=== PATIENT | female | born 1940 | race Caucasian/White ===

== ENCOUNTER 2020-09-27 14:28 | Outpatient (CLI) | payer MEDICARE, SELFPAY ==
[2020-09-27 14:46] LABS: Basophils Percent Auto 0.4 % (0.2-1.2); Eosinophils Absolute Auto 0.2 K/mm3 (0-0.3); Eosinophils Percent Auto 2.9 % (0-4.4); Hematocrit 39.3 % (37.0-47.0); Hemoglobin 12.3 g/dL (12.0-15.0); Immature Granulocyte Absolute 0.02 K/mm3 (0.00-0.031); Immature Granulocyte Percent A 0.3 % (0-0.5); Lymphocytes Absolute Auto 0.91 K/mm3 (0.9-3.2); Lymphocytes Percent Auto 12.8 % (18.3-44.2); Mean Corpuscular HGB Conc 31.3 g/dl (32-36); Mean Corpuscular Hemoglobin 25.2 pg (26-34); Mean Corpuscular Volume 80.5 fl (80-100); Mean Platelet Volume 10.2 fl (7.4-10.4); Monocytes Absolute Auto 0.6 K/mm3 (0.1-0.6); Monocytes Percent Auto 8.3 % (2.6-8.5); Neutrophils Absolute Auto 5.4 K/mm3 (1.3-6.7); Neutrophils Percent Auto 75.3 % (45.5-73.1); Platelet Count Result 274 k/mm3 (150-375); Red Blood Count 4.88 M/mm3 (4.2-5.4); Red Cell Distribution Width 15.8 % (11.5-14.5); White Blood Count 7.1 K/mm3 (4.5-10.0)
[2020-09-27 16:27] LABS: Iron 41 ug/dL (37-170)
[2020-09-27 16:36] LABS: Percent Iron Saturation 13 % (20-50)
[2020-09-27 18:03] LABS: Alanine Aminotransferase 22 U/L (4-35); Albumin Level 4.1 g/dL (3.5-5.1); Alkaline Phosphatase 84 U/L (38-126); Anion Gap 4 mmol/L (8-16); Aspartate Amino Transferase 23 U/L (14-36); Bilirubin,Total 0.2 mg/dL (0.2-1.3); Blood Urea Nitrogen 18 mg/dL (7-17); Calcium 9.7 mg/dL (8.4-10.2); Carbon Dioxide 32 mmol/L (22-30); Chloride 104 mmol/L (98-107); Estimated Glomerular Filt Rate > 60; Glucose 102 mg/dL (65-105); Potassium 4.2 mmol/L (3.4-5.0); Sodium 140 mmol/L (137-145)
[2020-09-27 18:40] LABS: Thyroid Stimulating Hormone 0.253 uIU/mL (0.465-4.680)
[2020-09-27 19:15] LABS: Folic Acid 9.1 ng/mL (2.76->20)
== END 2020-09-27 14:29 | disposition home or self-care (01) ==
LOC: ANHLAB 14:30
PROVIDERS: PCP Physician Assistant; Visit Provider Internal Medicine Hematology & Oncology
DX: D64.9 Anemia, unspecified (principal)
CPT/HCPCS: 36415; 80053; 82607; 82728; 82746; 83540; 83550; 84443; 85025

== ENCOUNTER 2020-10-25 08:17 | Outpatient (CLI) | payer MEDICARE, SELFPAY ==
--- NOTE | ~2020-10-25 | CT_ITS ---
EXAMINATION: CT diagnostic chest w con EXAM DATE: 10/25/2020 08:56 INDICATION: Right lung cancer. TECHNIQUE: Spiral CT of the chest following intravenous injection of 75 mL Omnipaque 350. Axial, cor onal and sagittal images of the chest were reviewed. Coronal maximum intensity pixel images of chest reviewed. The dose-length product (DLP) for this examination was 154.56 mGy-cm. The exposure was t ailored according to patient size (auto mA exposure control), and iterative reconstruction (ASIR) was used as additional dose reduction technique. There is no prior study for comparison. FINDINGS: There is a left-sided portacatheter. Spiculated but predominantly linear right upper lobe opacity with pleural-based component and then linear extension toward the hilum, probably patient's t reated lung cancer. Difficult to measure this given shape. There is moderate emphysema. Trace perica rdial effusion. No pleural effusions. Tracheobronchial tree is patent. There is no mediastinal, hi lar or axillary lymphadenopathy. There is no pneumothorax. Heart normal in size. There is mild coronary arterial calcification, arterial sclerosis. There is fluid density right liver lobe lesion measuring 2.0 cm, probably a cyst. There is a 1.1 cm right adrenal lesion, more likely an adenoma sugar n metastatic disease, but not meeting density requirement on this postcontrast CT. No central pulmona ry emboli. There is thoracic spondylosis without osteoblastic or osteolytic lesions identified. IMPRESSION: 1. Right upper lobe pleural-based spiculated opacity probably treated lung cancer. 2. Moderate emphysema. 3. Liver lesion likely cyst. 4. Right adrenal lesion nonspecific but more likely adenoma than metastatic lesion adenoma. Reviewed, dictated and finalized at location B. IMPRESSION: 1. Right upper lobe pleural-based spiculated opacity probably treated lung can cer. 2. Moderate emphysema. 3. Liver lesion likely cyst. 4. Right adrenal lesion nonspecific but more likely adenoma than metastatic le jennifer adenoma.
[2020-10-25 13:00] VITALS: PULSE 105; O2SAT 95
[2020-10-25 13:02] VITALS: PULSE 105; O2SAT 96
[2020-10-25 13:03] VITALS: PULSE 115; O2SAT 95
[2020-10-25 13:04] VITALS: PULSE 113; O2SAT 96
[2020-10-25 13:24] VITALS: PULSE 118; O2SAT 95
--- NOTE | 2020-10-25 13:24 | HOMEO2EVAL ---
Evaluation was performed at [facility] Home Oxygen Evaluation RC: Home Oxygen (O2) Evaluation Start: 10/25/20 13:21 Freq: Status: Active Protocol: RPE Activity Type Activity Date Activity User E-Sign Co-Sign Detail Recorded Client Recorded Date Recorded By Document 10/25/20 13:00 KRM [email or web address] 10/25/20 13:24 KRM Document 10/25/20 13:02 KRM [email or web address] 10/25/20 13:24 KRM Document 10/25/20 13:03 KRM [email or web address] 10/25/20 13:24 KRM Document 10/25/20 13:04 KRM [email or web address] 10/25/20 13:24 KRM Document 10/25/20 13:24 KRM [email or web address] 10/25/20 13:24 KRM 10/25/20 10/25/20 10/25/20 13:00 13:02 13:03 Home O2 Evaluation Test Phase Resting Exercise Exercise Oxygen Delivery Room Air Room Air Room Air Pulse Oximetry (90-100 %) 95 96 95 Pulse Rate (60-100 beats/min) 105 H 105 H 115 H Activity Tolerance Fair Fair Ambulation Distance (feet) Treatment Charges O2 Evaluation - Outpatient 10/25/20 10/25/20 13:04 13:24 Home O2 Evaluation Test Phase Exercise Exercise Oxygen Delivery Room Air Room Air Pulse Oximetry (90-100 %) 96 95 Pulse Rate (60-100 beats/min) 113 H 118 H Activity Tolerance Fair Fair Ambulation Distance (feet) 250 Treatment Charges
== END 2020-10-25 08:18 | disposition home or self-care (01) ==
PROVIDERS: PCP Physician Assistant; Referring Provider Internal Medicine Pulmonary Disease; Visit Provider Internal Medicine Hematology & Oncology
DX: C34.91 Malignant neoplasm of unspecified part of right bronchus or lung (principal); J43.9 Emphysema, unspecified; D35.01 Benign neoplasm of right adrenal gland; K76.89 Other specified diseases of liver
CPT/HCPCS: 71260; 94618; Q9967

== ENCOUNTER 2021-01-26 10:56 | Outpatient (CLI) | payer MEDICARE, SELFPAY ==
--- NOTE | ~2021-01-26 | XR_ITS ---
EXAMINATION: XR fl port a cath w contrast INDICATION: Malignant neoplasm of the right lung, unable to draw from the port. TECHNIQUE: Fluoroscopy was performed while contrast was injected by the vascular access nurse. Total fluoroscopic time was 0.6 minutes. 133 total images are obtained. COMPARISON: None available FINDINGS: A left internal jugular Port-A-Cath ends with its tip in the midsuperior vena cava. There i s subtle pooling of contrast near the tip of the catheter. IMPRESSION: 1. Findings consistent with fibrin sheath at the tip of the Port-A-Cath. Reviewed, dictated and finalized at location A.
== END 2021-01-26 10:57 | disposition home or self-care (01) ==
PROVIDERS: PCP Physician Assistant; Visit Provider Internal Medicine Hematology & Oncology
DX: C34.91 Malignant neoplasm of unspecified part of right bronchus or lung (principal)
CPT/HCPCS: 36598; Q9966

== ENCOUNTER 2021-05-05 11:31 | Outpatient (CLI) | payer MEDICARE, SELFPAY ==
[2021-05-09 18:34] LABS: Free T4 Free Thyroxine 1.26 ng/mL (0.78-2.19)
== END 2021-05-05 11:32 | disposition home or self-care (01) ==
LOC: ANHLAB 11:33
PROVIDERS: PCP Physician Assistant; Visit Provider Physician Assistant
DX: E03.9 Hypothyroidism, unspecified (principal)
CPT/HCPCS: 36415; 84439; 84443

== ENCOUNTER 2021-05-23 13:09 | Outpatient (CLI) | payer MEDICARE, SELFPAY ==
--- NOTE | ~2021-05-23 | CT_ITS ---
EXAMINATION:CT diagnostic chest w con DATE: 05/23/2021 14:16 INDICATION: Malignant neoplasm of right lung. TECHNIQUE: Computed tomography (CT) of the chest was performed with 75 mL Omnipaque 350 intravenous c ontrast. Automated exposure control and iterative reconstruction technique were employed. The dose-le ngth product (DLP) was 279.46 mGy-cm. COMPARISON: Chest CT 10/25/2020 FINDINGS: There is moderate emphysema. There is mild scarring at the lung apices. There are airspace opacities with volume loss in apical segment right upper lobe. Again seen is a 7 mm groundglass opaci ty in right upper lobe. There is mild atelectasis in lingula. Again seen are two 3 mm nodules in left upper lobe. No pleural effusion. There is a left internal jugular port with tip in superior vena cav a. The heart size is normal. No pericardial effusion. There are coronary artery calcifications. There is a 2.2 cm cyst in the liver. There is a 10 mm mass in right adrenal gland measuring low-attenuatio n without change, likely an adenoma. There is severe thoracic spondylosis. IMPRESSION: 1. 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 2. Moderate emphysema. Reviewed, dictated and finalized at location A. NING SPECIALIST IMPRESSION: 1. Stable airspace opacities with volume loss in apical segment right upper lob e, consistent with primary bronchogenic carcinoma and radiation fibrosis. 2. Moderate emphysema.
[2021-05-23 14:07] LABS: Estimated Glomerular Filt Rate 54
== END 2021-05-23 13:10 | disposition home or self-care (01) ==
LOC: ANHIMG 13:10
PROVIDERS: PCP Physician Assistant; Visit Provider Internal Medicine Hematology & Oncology
DX: C34.91 Malignant neoplasm of unspecified part of right bronchus or lung (principal); R91.8 Other nonspecific abnormal finding of lung field; J43.9 Emphysema, unspecified
CPT/HCPCS: 71260; 96372; J3420; Q9967

== ENCOUNTER 2021-06-21 11:48 | Outpatient (CLI) | payer MEDICARE, SELFPAY ==
[2021-06-21 13:07] LABS: Free T4 Free Thyroxine 1.99 ng/mL (0.78-2.19)
[2021-06-21 13:21] LABS: Thyroid Stimulating Hormone 0.673 uIU/mL (0.465-4.680)
== END 2021-06-21 11:49 | disposition home or self-care (01) ==
LOC: ANHLAB 11:51
PROVIDERS: PCP Physician Assistant; Visit Provider Physician Assistant
DX: E03.9 Hypothyroidism, unspecified (principal)
CPT/HCPCS: 36415; 84439; 84443

== ENCOUNTER → 2021-08-23 08:21 | Outpatient (CLI) | payer MEDICARE, SELFPAY ==
[2021-08-23 11:47] LABS: SARS-CoV-2 RNA PCR Negative
== END ==
PROVIDERS: PCP Physician Assistant; Visit Provider Physician Assistant
DX: R68.89 Other general symptoms and signs (principal); Z20.822 Contact with and (suspected) exposure to COVID-19
CPT/HCPCS: C9803; U0003; U0005

== ENCOUNTER 2021-09-16 09:11 | Emergency (ER) | payer MEDICARE, SELFPAY ==
[2021-09-16] VITALS (8 sets, daily range): BP systolic 113–146; BP diastolic 65–110; PULSE 102–108; RESP 24–28; TEMP 36.6; O2SAT 94–100
--- NOTE | ~2021-09-16 | XR_ITS ---
EXAMINATION: XR chest 1V portable INDICATION: Shortness of breath TECHNIQUE: Portable AP chest at 0948 hours COMPARISON: Chest CTs dated 05/23/2021 and 10/25/2020 FINDINGS: A left internal jugular Port-A-Cath ends with its tip in the midsuperior vena cava. There i s right upper lobe scarring, consistent with treated malignancy. No acute airspace opacities are iden tified. There is no pleural effusion or pneumothorax. The heart size is normal. IMPRESSION: 1. No acute cardiopulmonary abnormality. Reviewed, dictated and finalized at location B.
--- NOTE | 2021-09-16 09:34 | ECG_ITS ---
Measurements Intervals [place] Rate: 102 P: 69 GA: 156 QRS: 51 QRSD: 91 T: 50 QT: 337 QTc: 440 Interpretive Statements SINUS TACHYCARDIA OTHERWISE NORMAL ECG NO PREVIOUS ECG AVAILABLE FOR COMPARISON Electronically Signed On 09-16-2021 16:25:01 CDT by Osman Mota M.D.
[2021-09-16] MEDS: IPRATROPIUM BR 0.02% INH SOLN 0.5 MG/2.5 ML VIAL 1.5 MG INHALATION (09:46)
[2021-09-16] MEDS: ALBUTEROL SULFATE NEB 2.5 MG/0.5 ML INH 15 MG INHALATION (09:46)
[2021-09-16 10:21] LABS: Basophils Percent Auto 0.5 % (0.2-1.2); Eosinophils Absolute Auto 0.4 K/mm3 (0-0.3); Eosinophils Percent Auto 5.9 % (0-4.4); Hematocrit 43.1 % (37.0-47.0); Hemoglobin 13.1 g/dL (12.0-15.0); Immature Granulocyte Absolute 0.03 K/mm3 (0.00-0.031); Immature Granulocyte Percent A 0.5 % (0-0.5); Lymphocytes Absolute Auto 0.88 K/mm3 (0.9-3.2); Lymphocytes Percent Auto 14.4 % (18.3-44.2); Mean Corpuscular HGB Conc 30.4 g/dl (32-36); Mean Corpuscular Hemoglobin 26.2 pg (26-34); Mean Corpuscular Volume 86.2 fl (80-100); Mean Platelet Volume 10.7 fl (7.4-10.4); Monocytes Absolute Auto 0.5 K/mm3 (0.1-0.6); Monocytes Percent Auto 8.5 % (2.6-8.5); Neutrophils Absolute Auto 4.3 K/mm3 (1.3-6.7); Neutrophils Percent Auto 70.2 % (45.5-73.1); Platelet Count Result 195 k/mm3 (150-375); Red Cell Distribution Width 14.7 % (11.5-14.5); White Blood Count 6.1 K/mm3 (4.5-10.0)
[2021-09-16 10:33] LABS: Alanine Aminotransferase 30 U/L (4-35); Albumin Level 4.2 g/dL (3.5-5.1); Alkaline Phosphatase 96 U/L (38-126); Anion Gap 3 mmol/L (8-16); Aspartate Amino Transferase 29 U/L (14-36); Bilirubin,Total 0.4 mg/dL (0.2-1.3); Blood Urea Nitrogen 24 mg/dL (7-17); Calcium 9.1 mg/dL (8.4-10.2); Carbon Dioxide 35 mmol/L (22-30); Chloride 101 mmol/L (98-107); Estimated CRCL calculation 45 ml/min; Estimated Glomerular Filt Rate > 60; Glucose 125 mg/dL (65-110); Potassium 4.1 mmol/L (3.4-5.0); Sodium 139 mmol/L (137-145)
[2021-09-16 10:44] LABS: NT Pro B Type Natriuretic Pept 104 pg/mL (5-100)
--- NOTE | 2021-09-16 11:10 | ED.SOB ---
HPI - SOB/Dyspnea General Chief Complaint: Shortness of Breath/Dyspnea Stated Complaint: dyspnea Time Seen by Provider: 09/16/21 09:16 History of Present Illness HPI Narrative: Patient is a 81-year-old female who presents ER with shortness of breath. Intermittent over the last 2 months. She has been on steroids last finishing on 2 weeks ago. Shortness of breath worsened today. She has been wheezing has been using her nebulizer treatment without improvement. No fevers or chills or sweats. She does endorse cough. She wears 5 L at baseline. Related Data Home Medications Medication Instructions Recorded Confirmed montelukast 10 mg tablet 10 mg PO DAILY 08/17/20 09/01/21 fexofenadine 180 mg tablet 180 mg PO DAILY 09/20/20 09/01/21 magnesium oxide 400 mg (241.3 mg 400 mg PO DAILY 09/20/20 09/01/21 magnesium) tablet oaozdonsuvfv-Yt-qsrp-minerals 1 tablet PO DAILY 09/22/20 09/01/21 Allergies Allergy/AdvReac Type Severity Reaction Status Date / Time meperidine Allergy Mild Unknown Verified 09/16/21 09:30 Review of Systems Review of Systems: All systems reviewed & are unremarkable except as noted in HPI and below Constitutional: Constitutional: Denies chills, Denies fever(s) and Denies weakness ENT: Denies nasal congestion and Denies sore throat Cardiovascular: Cardiovascular: Denies chest pain, Denies rapid heart rate and Denies radiating jaw, neck or arm pain Respiratory: Respiratory: Reports cough, Reports dyspnea and Reports wheezing Gastrointestinal: Gastrointestinal: Denies abdominal pain, Denies diarrhea, Denies nausea and Denies vomiting [facility] Past Medical History Medical History Arthritis Cancer COPD (chronic obstructive pulmonary disease) History of tobacco abuse Lung disease MICHELLE (obstructive sleep apnea) Sleep disorder SOB (shortness of breath) Family History Family History Father Heart disease Black lung Alcohol abuse Mother Diabetes mellitus Heart disease Lung disease Sibling Asthma Heart disease Pancreas cancer Social History Social History Smoking packs per day: 1 Smoking cigarettes per day: 20.0 Years smoked: 50 Smoking pack-years: 50.00 Smoking status: Current every day smoker Tobacco type: cigarettes Alcohol intake: never Substance use: never Exam Narrative: GENERAL: Uncomfortable-appearing, well-nourished, and in mild distress. HEAD: Normocephalic, atraumatic. ENT: Mucous membranes moist. CHEST: Mild to moderate respiratory distress with historian expiratory rhonchi/wheezing bilaterally. HEART: Tachycardic regular. Normal peripheral pulses. ABDOMEN: Soft, nontender, nondistended. EXTREMITIES: Normal range of motion. No edema. SKIN: Warm, dry, no rash. NEURO: Alert and oriented x3. PSYCH: Normal mood and affect. Course Course Emergency Course: Patient informed of results. She is on her home O2. She has been able to ambulate without hypoxia. Patient did have some mild anxiety that was treated with Xanax and she feels much better. Vital Signs Vital signs: Vital Signs Temperature 97.8 F 09/16/21 09:09 Pulse Rate 108 H 09/16/21 09:09 Respiratory Rate 28 H 09/16/21 09:09 Blood Pressure 146/69 H 09/16/21 09:09 Pulse Oximetry 100 09/16/21 09:09 Temperature 97.8 F 09/16/21 09:09 Pulse Rate 102 H 09/16/21 10:28 Respiratory Rate 28 H 09/16/21 09:09 Blood Pressure 146/69 H 09/16/21 09:09 Pulse Oximetry 94 09/16/21 14:18 MDM - SOB/Dyspnea Lab Data Result diagrams: 09/16/21 10:11 09/16/21 10:10 Labs: Lab Results 09/16/21 09/16/21 09/16/21 Range/Units 10:10 10:10 10:11 WBC 6.1 (4.5-10.0) K/mm3 RBC 5.00 (4.2-5.4) M/mm3 Hgb 13.1 (12.0-15.0) g/dL Hct 43.1 (37.0-47.0) % MCV 86.2 (80-100) fl
--- NOTE | 2021-09-16 13:00 | PC.NURSE ---
1215-PATIENT REQUESTING BATHROOM. DUE TO SOB, PATIENT ASSISTED ONTO BEDSIDE COMMODE. REMAINS ON NASAL O2 @ 6L. PATIENT PLACED IN CLEAN DEPENDS PER HER REQUEST. JULIA CARE PROVIDED PER HER REQUEST. PATIENT ASSISTED X 2 BACK ONTO STRETCHER.
[2021-09-16] MEDS: methylPREDNISolone SOD SUCC 125 MG VIAL IV PUSH (13:03)
[2021-09-16] MEDS: ALPRAZolam (*CRX) 0.5 MG TABLET PO (13:03)
== END 2021-09-16 15:30 | disposition home or self-care (01) ==
PROVIDERS: Emergency Provider Emergency Medicine; PCP Physician Assistant
DX: J44.1 Chronic obstructive pulmonary disease with (acute) exacerbation (principal); G47.33 Obstructive sleep apnea (adult) (pediatric); M19.90 Unspecified osteoarthritis, unspecified site; F17.210 Nicotine dependence, cigarettes, uncomplicated; R00.0 Tachycardia, unspecified
CPT/HCPCS: 36415; 71045; 80053; 83880; 85025; 93005; 96374; 99284; A9270; J2930

== ENCOUNTER 2021-10-03 10:41 | Outpatient (CLI) | payer MEDICARE, SELFPAY ==
--- NOTE | ~2021-10-03 | CT_ITS ---
EXAMINATION: CT diagnostic chest w con DATE: 10/03/2021 11:25 INDICATION: Malignant neoplasm of the right lung TECHNIQUE: Transaxial computed tomographic images of the chest were obtained after the administration of 75 cc of Omnipaque 350 intravenous contrast. The dose-length product (DLP) was 241.60 mGy-cm. Ite rative reconstruction was used. COMPARISON: 05/23/2021 FINDINGS: There is moderate emphysema. Again noted are stable airspace opacities with volume loss in the right lung apex. There is a stable 6 mm groundglass nodule in the right upper lobe on image 44. T here is a stable 6 mm groundglass nodule in the left upper lobe on image 32. No new nodules are ident ified. There is no pleural effusion or pneumothorax. No pathologically enlarged thoracic lymph nodes are identified. The heart size is normal. A left internal jugular Port-A-Cath ends with its tip in th e distal superior vena cava. There is a 2.1 cm cyst of the right hepatic lobe. A stable adenoma is no new in the right adrenal gland. There is severe thoracic spondylosis. IMPRESSION: 1. Stable airspace opacities of the right lung apex, consistent with treated malignancy and radiation fibrosis. Reviewed, dictated and finalized at location A. IMPRESSION: 1. Stable airspace opacities of the right lung apex, consistent with treated ma lignancy and radiation fibrosis.
== END 2021-10-03 10:42 | disposition home or self-care (01) ==
LOC: ANHIMG 10:42
PROVIDERS: PCP Physician Assistant; Visit Provider Internal Medicine Hematology & Oncology
DX: C34.91 Malignant neoplasm of unspecified part of right bronchus or lung (principal)
CPT/HCPCS: 71260; Q9967

== ENCOUNTER 2022-03-27 12:54 | Outpatient (CLI) | payer MEDICARE, SELFPAY ==
--- NOTE | ~2022-03-27 | CT_ITS ---
EXAMINATION: CT diagnostic chest w con DATE: 03/27/2022 13:16 INDICATION: Malignant neoplasm of the right lung. TECHNIQUE: Computed tomography (CT) of the chest was performed with 75 cc Omnipaque 350 intravenous c ontrast. The dose-length product was 226.44 mGy-cm. COMPARISON: Comparison to multiple prior studies sequentially, with oldest reviewed study dated 08/2020. FINDINGS: No mediastinal, hilar or axillary lymphadenopathy. There is a port catheter, tip in the SVC . Heart size normal. No significant pleural or pericardial effusion. There is a liver cyst measuring 1.9 cm, right hepatic lobe. Adrenal glands are unremarkable. No endobronchial lesions. No significant change to opacities in the right upper lobe extending to the pleural surface with volume loss. Stabl e scarring at the lung apices. There is moderate-severe emphysema. No endobronchial lesions. There is a stable groundglass nodule in the right upper lobe, image 31, measuring 6 mm. There is a stable 3 m m groundglass nodule in the left upper lobe, image 23. There is a calcified granuloma in the left upp er lobe. No peripheral consolidation. No new pulmonary nodules/masses. No pneumothorax. There is mode rate thoracic spondylosis. No focal lytic or blastic lesions. IMPRESSION: 1. Stable right upper lobe opacities with associated volume loss, consistent with known history of br onchogenic carcinoma with radiation fibrosis. Stable bilateral groundglass nodules, likely benign. Reviewed, dictated and finalized at location A. IMPRESSION: 1. Stable right upper lobe opacities with associated volume loss, consistent wi th known history of bronchogenic carcinoma with radiation fibrosis. Stable bila teral groundglass nodules, likely benign.
[2022-03-27 13:13] LABS: Estimated Glomerular Filt Rate 53
== END 2022-03-27 12:55 | disposition home or self-care (01) ==
PROVIDERS: PCP Physician Assistant; Visit Provider Internal Medicine Hematology & Oncology
DX: C34.91 Malignant neoplasm of unspecified part of right bronchus or lung (principal)
CPT/HCPCS: 71260; Q9967

== ENCOUNTER 2022-11-30 14:48 | Outpatient (CLI) | payer MEDICARE, SELFPAY ==
--- NOTE | ~2022-11-30 | CT_ITS ---
EXAMINATION: CT diagnostic chest w con DATE: 11/30/2022 15:27 INDICATION: Lung cancer TECHNIQUE: Transaxial computed tomographic images of the chest were obtained after the administration of 75 cc of Omnipaque 350 intravenous contrast. The dose-length product (DLP) was 278.64 mGy-cm. Ite rative reconstruction was used. COMPARISON: 03/27/2022, 10/03/2021 FINDINGS: There is moderate emphysema. There are stable airspace opacities with volume loss in the ri ght lung apex. A stable 6 mm groundglass nodule is present in the right upper lobe on image 37. There is a stable 6 mm groundglass nodule of the left upper lobe on image 32. No pleural effusion or pneum othorax. There is mild atelectasis of the lingula and right lower lobe. No pathologically enlarged th oracic lymph nodes are identified. The heart size is normal. A left internal jugular Port-A-Cath ends with its tip in the distal superior vena cava. There is calcified coronary artery atherosclerosis. A 2.1 cm cyst is noted in the right hepatic lobe. Stones are present in the nondistended gallbladder. There is severe thoracic spondylosis. IMPRESSION: 1. Findings consistent with treated malignancy and radiation fibrosis in the right upper lobe. Reviewed, dictated and finalized at location F. IMPRESSION: 1. Findings consistent with treated malignancy and radiation fibrosis in the ri t upper lobe.
== END 2022-11-30 14:49 | disposition home or self-care (01) ==
PROVIDERS: PCP Physician Assistant; Visit Provider Internal Medicine Hematology & Oncology
DX: C34.91 Malignant neoplasm of unspecified part of right bronchus or lung (principal)
CPT/HCPCS: 71260; Q9967

== ENCOUNTER 2023-07-31 08:55 | Outpatient (CLI) | payer MEDICARE, SELFPAY ==
--- NOTE | ~2023-07-31 | CT_ITS ---
EXAMINATION: CT diagnostic chest w con DATE: 07/31/2023 09:25 INDICATION: Malignant neoplasm of the right lung TECHNIQUE: Transaxial computed tomographic images of the chest were obtained after the administration of 75 cc of Omnipaque 350 intravenous contrast. The dose-length product (DLP) was 252.42 mGy-cm. Ite rative reconstruction was used. COMPARISON: 11/30/2022 FINDINGS: Airspace opacities and volume loss persists in the right lung apex without significant alvarez ge. There is moderate emphysema. There is a stable 6 mm groundglass nodule in the right upper lobe on image 32. There is a stable groundglass nodule of the left upper lobe on image 27. The lungs are terell e of acute opacities. No pleural effusion or pneumothorax. A left internal jugular Port-A-Cath ends w ith its tip in the superior vena cava. No pathologically enlarged thoracic lymph nodes are identified . The heart size is normal. Calcified coronary artery atherosclerosis is noted. There is a 2.2 cm cys t of the right hepatic lobe. Cholelithiasis is noted. There is severe thoracic spondylosis. IMPRESSION: 1. Stable findings consistent with treated malignancy and radiation fibrosis of the right upper lobe. Reviewed, dictated and finalized at location L. SORTER OPERATOR
== END 2023-07-31 08:56 | disposition home or self-care (01) ==
PROVIDERS: PCP Physician Assistant; Visit Provider Internal Medicine Hematology & Oncology
DX: C34.91 Malignant neoplasm of unspecified part of right bronchus or lung (principal)
CPT/HCPCS: 71260; Q9967

== ENCOUNTER 2024-01-22 10:58 | Outpatient (CLI) | payer MEDICARE, SELFPAY ==
[2024-01-22 11:22] LABS: Basophils Percent Auto 0.7 % (0.2-1.2); Eosinophils Absolute Auto 0.2 K/mm3 (0-0.3); Eosinophils Percent Auto 3.7 % (0-4.4); Hematocrit 39.6 % (37.0-47.0); Hemoglobin 11.9 g/dL (12.0-15.0); Immature Granulocyte Absolute 0.01 K/mm3 (0.00-0.031); Immature Granulocyte Percent A 0.2 % (0-0.5); Lymphocytes Absolute Auto 1.35 K/mm3 (0.9-3.2); Lymphocytes Percent Auto 23.6 % (18.3-44.2); Mean Corpuscular HGB Conc 30.1 g/dl (32-36); Mean Corpuscular Volume 86.5 fl (80-100); Mean Platelet Volume 9.9 fl (7.4-10.4); Monocytes Absolute Auto 0.5 K/mm3 (0.1-0.6); Monocytes Percent Auto 8.6 % (2.6-8.5); Neutrophils Absolute Auto 3.6 K/mm3 (1.3-6.7); Neutrophils Percent Auto 63.2 % (45.5-73.1); Platelet Count Result 222 k/mm3 (150-375); Red Blood Count 4.58 M/mm3 (4.2-5.4); Red Cell Distribution Width 14.2 % (11.5-14.5); White Blood Count 5.7 K/mm3 (4.5-10.0)
[2024-01-22 12:15] LABS: Alanine Aminotransferase 21 U/L (6-35); Albumin Level 4.2 g/dL (3.5-5.1); Alkaline Phosphatase 93 U/L (38-126); Anion Gap 7 mmol/L (4-12); Aspartate Amino Transferase 22 U/L (14-36); Bilirubin,Total 0.4 mg/dL (0.2-1.3); Blood Urea Nitrogen 18 mg/dL (7-17); Carbon Dioxide 33 mmol/L (22-30); Chloride 99 mmol/L (98-107); Estimated Glomerular Filt Rate 60; Glucose 92 mg/dL (65-110); Potassium 4.3 mmol/L (3.4-5.0); Sodium 139 mmol/L (137-145)
[2024-01-22 13:22] LABS: Folic Acid 8.5 ng/mL (2.76->20)
== END 2024-01-22 10:59 | disposition home or self-care (01) ==
LOC: ANHLAB 11:00
PROVIDERS: PCP Physician Assistant; Visit Provider Internal Medicine Hematology & Oncology
DX: D64.9 Anemia, unspecified (principal)
CPT/HCPCS: 36415; 80053; 82607; 82746; 85025

== ENCOUNTER 2024-01-28 09:35 | Outpatient (CLI) | payer MEDICARE, SELFPAY ==
--- NOTE | ~2024-01-28 | CT_ITS ---
Clinical Indication: Lung cancer CT Scan of the Chest with Contrast: Technique: Contiguous sections were acquired throughout the chest after intravenous administration of 75 cc of Omnipaque 350. Dose reduction technique was used on this scan by utilizing automated exposu re control and iterative reconstruction technique. The dose-length product (DLP) was 222.01 mGy-cm. COMPARISON: 07/31/2023 Findings: There is no evidence of any significant mediastinal, hilar or axillary lymphadenopathy. There is no f illing defect in the pulmonary arterial tree to suggest pulmonary embolus. There is no evidence of ao rtic dissection or aneurysm. There is no evidence of pleural or pericardial effusion. Stable irregular right apical nodular opacity osseous of treated disease, with possible scarring exte nding towards the right hilum. These findings are stable from prior exam. Moderate upper lobe emphyse ma present. Images through the upper abdomen reveal stable right adrenal nodule and stable right hepatic lobe cys t. Impression: Stable probable posttreatment changes/treated disease in the right upper lobe. Moderate bilateral upper lobe emphysema. Reviewed, dictated and finalized at location M. Impression: Stable probable posttreatment changes/treated disease in the right upper lobe. Moderate bilateral upper lobe emphysema.
== END 2024-01-28 09:36 | disposition home or self-care (01) ==
PROVIDERS: PCP Internal Medicine; Visit Provider Internal Medicine Hematology & Oncology
DX: C34.91 Malignant neoplasm of unspecified part of right bronchus or lung (principal); J43.9 Emphysema, unspecified
CPT/HCPCS: 71260; Q9967

== ENCOUNTER 2024-02-20 09:41 | Outpatient (CLI) | payer MEDICARE, SELFPAY ==
[2024-02-20 10:01] LABS: Basophils Absolute Auto 0.1 K/mm3 (0.0-0.1); Basophils Percent Auto 0.8 % (0.2-1.2); Eosinophils Absolute Auto 0.3 K/mm3 (0-0.3); Eosinophils Percent Auto 4.3 % (0-4.4); Hematocrit 42.6 % (37.0-47.0); Hemoglobin 13.1 g/dL (12.0-15.0); Immature Granulocyte Absolute 0.01 K/mm3 (0.00-0.031); Immature Granulocyte Percent A 0.2 % (0-0.5); Lymphocytes Absolute Auto 1.25 K/mm3 (0.9-3.2); Lymphocytes Percent Auto 19.3 % (18.3-44.2); Mean Corpuscular HGB Conc 30.8 g/dl (32-36); Mean Corpuscular Hemoglobin 26.1 pg (26-34); Mean Platelet Volume 10.3 fl (7.4-10.4); Monocytes Absolute Auto 0.7 K/mm3 (0.1-0.6); Monocytes Percent Auto 10.3 % (2.6-8.5); Neutrophils Absolute Auto 4.2 K/mm3 (1.3-6.7); Neutrophils Percent Auto 65.1 % (45.5-73.1); Platelet Count Result 210 k/mm3 (150-375); Red Blood Count 5.01 M/mm3 (4.2-5.4); Red Cell Distribution Width 14.1 % (11.5-14.5); White Blood Count 6.5 K/mm3 (4.5-10.0)
[2024-02-20 11:06] LABS: Alanine Aminotransferase 23 U/L (6-35); Albumin Level 4.5 g/dL (3.5-5.1); Alkaline Phosphatase 105 U/L (38-126); Anion Gap 8 mmol/L (4-12); Aspartate Amino Transferase 26 U/L (14-36); Bilirubin,Total 0.5 mg/dL (0.2-1.3); Blood Urea Nitrogen 18 mg/dL (7-17); Calcium 9.3 mg/dL (8.4-10.2); Carbon Dioxide 34 mmol/L (22-30); Chloride 96 mmol/L (98-107); Estimated Glomerular Filt Rate 60; Glucose 80 mg/dL (65-110); Potassium 4.3 mmol/L (3.4-5.0); Sodium 138 mmol/L (137-145)
[2024-02-20 12:11] LABS: Folic Acid 8.8 ng/mL (2.76->20)
== END 2024-02-20 09:42 | disposition home or self-care (01) ==
LOC: ANHLAB 09:42
PROVIDERS: PCP Internal Medicine; Visit Provider Internal Medicine Hematology & Oncology
DX: D64.9 Anemia, unspecified (principal)
CPT/HCPCS: 36415; 80053; 82607; 82746; 85025

== ENCOUNTER 2024-05-13 11:54 | Outpatient (CLI) | payer MEDICARE, SELFPAY ==
[2024-05-13 12:43] LABS: Free T4 Free Thyroxine 1.62 ng/mL (0.78-2.19)
== END 2024-05-13 11:55 | disposition home or self-care (01) ==
LOC: ANHLAB 11:56
PROVIDERS: PCP Internal Medicine; Visit Provider Internal Medicine
DX: E03.9 Hypothyroidism, unspecified (principal)
CPT/HCPCS: 36415; 84439; 84443

== ENCOUNTER 2024-08-11 09:58 | Outpatient (CLI) | payer MEDICARE, SELFPAY ==
--- NOTE | ~2024-08-11 | CT_ITS ---
Clinical Indication: Lung cancer CT Scan of the Chest with Contrast: Technique: Contiguous sections were acquired throughout the chest after intravenous administration of 75 cc of Omnipaque 350. Dose reduction technique was used on this scan by utilizing automated exposu re control and iterative reconstruction technique. The dose-length product (DLP) was 225.07 mGy-cm. COMPARISON: 01/28/2024 Findings: There is no evidence of any significant mediastinal, hilar or axillary lymphadenopathy. There is no f illing defect in the pulmonary arterial tree to suggest pulmonary embolus. There is no evidence of ao rtic dissection or aneurysm. There is no evidence of pleural or pericardial effusion. Stable spiculated right upper lobe nodule, suggestive of treated disease. Moderate to advanced emphys jess and right pleural scarring unchanged. Images through the upper abdomen reveal no abnormalities. Impression: Stable spiculated right upper lobe nodule and scarring, suggestive of treated disease/post therapy ch sofia. Moderate to advanced emphysema. Reviewed, dictated and finalized at location . UTER PROGRAMMING PROFESSOR Impression: Stable spiculated right upper lobe nodule and scarring, suggestive of treated d isease/post therapy change. Moderate to advanced emphysema.
[2024-08-11 10:28] LABS: Estimated Glomerular Filt Rate 53
--- OUTSIDE RECORDS SUMMARY | 2024-08-11 12:48 | XMS_ITS | Continuity of Care Document ---
Author Organization [facility] Address [address] [place] [address] [place] [address] Phone Care Team Providers Care Manager Corporate Communications Name Role Phone Jd Rodarte Unavailable Unavailable Procedures Procedure Date Office/outpatient Visit, Est Office/outpatient Visit, New Advance Directives Directive Yes / No Effective Date File Name No Information Encounters Encounter Description Practice Location Reason(s) For Visit Diagnoses Date Provider Providers Copied on Encounter Office/outpat ient Visit, [facility], [address] [place] [address] [address], [place], [place], [id number], tel:[phone] SEC [facility] No Information [address] [facility] , [address], [place], [place], [facility], . tel:[phone] Office/outpat ient Visit, [facility], [address] [place] [address] [address], [place], [place], [id number], tel:[phone] [facility] [place] No Information [address]. [address] [facility] , [address], [place], [place], [facility], [place]. tel:[phone] Family History Family Member Type Diagnosis Age At Onset No Information Payers Payer name Insurance type Covered constitution party ID Authoriza tion(s) No Information Social History Type Description Quantity Date Captured Comments Sex Female Smoking Status No Information Chief Complaint And Reason For Visit No Information Reason For Referral Reason For Referral No Information History Of Present Illness Encounter Date Complaint History Of Prese nt Illness No Information Functional Status Date Functional Assessmen t No Information Instructions Date Instruction Additional Infor mation No Information Assessments Type Assessment Date No Information Patient Care Teams Name Effective Dates (start - stop) Status Members No Information
--- OUTSIDE RECORDS SUMMARY | 2024-08-11 12:48 | XMS_ITS | Clinical Summary ---
Author Organization [facility] Address [address] [place] [address] Care Team Providers Care Mineral Surveying Technician Name Role Phone Robb Bloom PA-C Primary Care Provide r Allergies Active Allergy Reactions Criticality Noted Date Comments Meperidine Nausea and Vomiting Low 08/10/2017 Medications furosemide (LASIX) 40 mg tablet Take 40 mg by mouth. Active gabapentin (NEURONTIN) 300 mg capsule Take 900 mg by mouth. Active fexofenadine (AZALEA) 180 mg tablet Take 180 mg by mouth. Active albuterol HFA 90 mcg inhaler Take 2 Puffs by inhalation every 6 hours as needed. Active oxygen home delivery Administer 2 L/min in each nostril. Active MAGNESIUM ORAL Take by mouth. Active Spiriva Respimat 2.5 mcg/actuation Mist INHALE 1 PUFF BY MOUTH TWICE DAILY 1 Active theophylline (THEOCHRON) 300 mg Extended Release 12 hour tablet Take 300 mg by mouth. Active pramipexole (MIRAPEX) 0.25 mg tablet Take 0.25 mg by mouth. 8 Active potassium chloride (KLOR-CON) 10 mEq Extended Release tablet Take 10 mEq by mouth. Active montelukast (SINGULAIR) 10 mg tablet Take 10 mg by mouth. Active spironolactone (ALDACTONE) 25 mg tablet Take 25 mg by mouth. Active arformoteroL (BROVANA) 15 mcg/2 mL Solution for Nebulization Take by inhalation. Active BUDESONIDE INHALATION Take by inhalation. Active umeclidinium (INCRUSE ELLIPTA) 62.5 mcg/actuation Disk with Device Take 1 Puff by inhalation daily. 1 Each 11 0 Active promethazine-dex tromethorphan (PHENERGAN-DM) 6.25-15 mg/5 mL syrupIndications :Medicine refill Take 5 mL by mouth every 4 hours as needed for Cough. May cause drowsinesss 120 mL 0 0 Active sertraline (ZOLOFT) 50 mg tablet Take 50 mg by mouth daily. 2 Active Daliresp 250 mcg Tablet TAKE 1 TABLET BY MOUTH DAILY FOR 4 WEEKS. START THIS PACK FIRST 2 Active Daliresp 500 mcg Tablet TAKE 1 TABLET BY MOUTH DAILY. START THIS AFTER FINISHING THE 250 MCG PACK 2 Active predniSONE (DELTASONE) 10 mg tablet 3 Active levothyroxine 100 mcg tablet TAKE 1 TABLET(100 MCG) BY MOUTH DAILY IN THE MORNING 90 Tablet 3 4 Active Active Problems Problem Noted Date Diagnosed Date Vitamin B12 deficiency (non anemic) 11/02/2020 Non-small cell cancer of right lung 09/27/2020 Other fatigue 09/27/2020 Chronic obstructive pulmonary disease 03/04/2019 Enlargement of lymph node 11/14/2018 Malignant neoplasm of upper lobe of right lung 0 07/31/2018 Cancer Staging:Clinical:Stage IA3(cT1c, cN0, cM0) - Unsigned Tobacco use Cigarette dependence Encounters Date Type Department Care Team Description 07/16/2024 External Device Data STL ABSTRACTION Provider, Abstract 07/16/2024 External Device Data STL ABSTRACTION Provider, Abstract from Last 3 Months Immunizations Immunization Administration Dates Next Due Influenza Vaccine High Dose 65+ Yrs IM 8 Family History Medical History Relation Name Comments Melanoma Daughter Heart Disease Father Diabetes Mother Heart Disease Mother Heart Disease Sister 1 Pancreatic Cancer Sister 1 Pancreatic Cancer Sister 2 Relation Name Status Comments Brother 1 Alive Brother 2 Daughter Alive Father Mother Sister 1 Sister 2 Alive Son 1 Alive Son 2 Social History Tobacco Use Types Packs/Day Years Used Date Smoking Tobacco: Every Day Cigarettes 2 58 Smokeless Tobacco: Never Tobacco Cessation:Ready to Q uit: Not Asked; Counseling Given: Not Answered Comments:smoked since 20 yrs Alcohol Use Standard Drinks/Week Comments No 0 (1 standard drink = 0.6 oz pur e alcohol) Feeling Safe Answer Date Recorded Within the last year, have y ou been afraid of your partner or ex-partner? No 01/30/2019 Within the last year, have y ou been humiliated or emotionally abused in other ways by your partner or ex-partner? No Within the last year, have y ou been kicked, hit, slapped, or otherwise physically hurt by your partner or ex-partner? No 01/30/2019 Within the last year, have y ou been raped or forced to have any kind of sexual activity by your partner or ex-partner? No 01/30/2019 Social Connections Answer Date Recorded In a typical week, how many times do you talk on the phone with family, friends, or neighbors? Three times a week 01/30/2019 How often do you get togethe r with friends or relatives? Never 01/30/2019 How often do you attend chur ch or church services? Never 01/30/2019 Do you belong to any clubs o r organizations such as rastafari groups, unions, fraternal or athletic groups, or school groups? No 01/30/2019 How often do you attend meet ings of the clubs or organizations you belong to? Never 01/30/2019 Are you , , di vorced, , never , or living with a partner? 01/30/2019 Financial Resource Strain Answer Date R ecorded How hard is it for you to pa y for the very basics like food, housing, medical care, and heating? Not hard at all 01/30/2019 Food Insecurity Answer Date Recorded Within the past 12 months, y ou worried that your food would run out before you got the money to buy more. Never true 01/31/20 19 Within the past 12 months, t he food you bought just didn't last and you didn't have money to get more. Never true 01/30/2019 Transportation Needs Answer Date Record ed In the past 12 months, has l ack of transportation kept you from medical appointments or from getting medications? No 01/2019 In the past 12 months, has l ack of transportation kept you from meetings, work, or from getting things needed for daily living? No 01/30/2019 Comments Unknown Sex and Gender Information Value Date Recorded Sex Assigned at Not on file Legal Sex Female 4:12 AM ORACLE DRM CONSULTANT Gender Identity Not on file Sexual Orientation Not on file Last Filed Vital Signs Vital Sign Reading Time Taken Comments Blood Pressure 99/62 02/21/2024 2:05 PM CDT Pulse 96 02/21/2024 2:05 PM CDT Temperature 36.3 C (97.3 F) 02/21/2024 2:05 PM CDT Respiratory Rate 18 02/21/2024 2:05 PM CDT Oxygen Saturation 92% 02/21/2024 2:05 PM CDT Inhaled Oxygen Concentration - - Weight 76.6 kg (168 lb 12.8 oz) 08/08/2023 1:00 PM ORACLE DRM CONSULTANT Height 154.9 cm (5' 1 ) 10/10/2021 11:2 6 AM CDT Body Mass Index 31.89 10/10/2021 11:26 AM CDT Plan of Treatment Upcoming Encounters Date Type Department Care Team (Late st Contact Info) Description 08/19/2024 1:00 PM ORACLE DRM CONSULTANT Office Visit [facility] Oncology and Hematology - [place] [address] [facility] [address] [address] [place] [address] [place] [address] [address] [place] [address] Health Maintenance Due Date Last Done Comments DTAP/TDAP/TD VACCINES (1 - Tdap) 1959 PNEUMOCOCCAL VACCINE 65+ YEARS (1 of 2 - PCV) 08/29/18 62 ZOSTER VACCINE (1 of 2) 1992 OSTEOPOROSIS SCREENING 08/30/2007 RSV VACCINE (60+ or ) (1 - 1-dose 75+ series) 2017 INFLUENZA VACCINE (#1) 2024 05/08/2018 Medicare [place] ([place]) Prev entative Visit/Annual Wellness Visit 06/25/2024 Medical Devices Implanted Type Area Lacquerer Device Identifier Shelf Expiration Date Model / Serial / Lot Port Pwrprt Clr Sofi 8fr Mri [id number] Implanted:Qty : 1 on 02/06/2019 by Pam Garcia MD Port Left: Chest CR [employer] [id number] 01/23/2020 [id number] / / [id number] Description:8fr Bard ClearVu e PowerPort Insurance Care Teams Mineral Surveying Technician Relationship Specialty Start Date End Date Robb Bloom PA-C PCP - General Physician Ordnance Mechanic 09/27/20
== END 2024-08-11 09:59 | disposition home or self-care (01) ==
PROVIDERS: PCP Internal Medicine; Visit Provider Internal Medicine Hematology & Oncology
DX: R91.1 Solitary pulmonary nodule (principal); J98.4 Other disorders of lung; J43.9 Emphysema, unspecified; C34.91 Malignant neoplasm of unspecified part of right bronchus or lung
CPT/HCPCS: 71260; Q9967

== ENCOUNTER 2024-08-11 10:59 | Outpatient (CLI) | payer MEDICARE, SELFPAY ==
[2024-08-11 11:34] LABS: Basophils Percent Auto 0.7 % (0.2-1.2); Eosinophils Absolute Auto 0.2 K/mm3 (0-0.3); Eosinophils Percent Auto 2.5 % (0-4.4); Hematocrit 40.2 % (37.0-47.0); Hemoglobin 12.4 g/dL (12.0-15.0); Immature Granulocyte Absolute 0.02 K/mm3 (0.00-0.031); Immature Granulocyte Percent A 0.3 % (0-0.5); Lymphocytes Absolute Auto 1.19 K/mm3 (0.9-3.2); Lymphocytes Percent Auto 19.8 % (18.3-44.2); Mean Corpuscular HGB Conc 30.8 g/dl (32-36); Mean Corpuscular Hemoglobin 25.2 pg (26-34); Mean Corpuscular Volume 81.7 fl (80-100); Monocytes Absolute Auto 0.5 K/mm3 (0.1-0.6); Monocytes Percent Auto 8.7 % (2.6-8.5); Neutrophils Absolute Auto 4.1 K/mm3 (1.3-6.7); Platelet Count Result 208 k/mm3 (150-375); Red Blood Count 4.92 M/mm3 (4.2-5.4); Red Cell Distribution Width 15.2 % (11.5-14.5)
[2024-08-11 13:31] LABS: Iron 58 ug/dL (37-170)
[2024-08-11 13:32] LABS: Alanine Aminotransferase 23 U/L (6-35); Albumin Level 4.1 g/dL (3.5-5.1); Alkaline Phosphatase 107 U/L (38-126); Anion Gap 6 mmol/L (4-12); Aspartate Amino Transferase 23 U/L (14-36); Bilirubin,Total 0.6 mg/dL (0.2-1.3); Blood Urea Nitrogen 15 mg/dL (7-17); Calcium 9.8 mg/dL (8.4-10.2); Carbon Dioxide 34 mmol/L (22-30); Chloride 98 mmol/L (98-107); Estimated Glomerular Filt Rate 60; Glucose 97 mg/dL (65-110); Potassium 4.7 mmol/L (3.4-5.0); Sodium 138 mmol/L (137-145)
[2024-08-11 13:46] LABS: Percent Iron Saturation 21 % (20-50)
--- OUTSIDE RECORDS SUMMARY | 2024-08-11 14:03 | XMS_ITS | Continuity of Care Document ---
Author Organization [facility] Address [address] [place] [address] [place] [address] Phone Care Team Providers Care Throw Out Clerk Name Role Phone Jd Rodarte Unavailable Unavailable Procedures Procedure Date Office/outpatient Visit, Est Office/outpatient Visit, New Advance Directives Directive Yes / No Effective Date File Name No Information Encounters Encounter Description Practice Location Reason(s) For Visit Diagnoses Date Provider Providers Copied on Encounter Office[place]pat [place] [facility] [place] [address] [place] [address] [address], [place], [place], [id number], tel:[phone] SEC [facility] No Information [address] [facility] , [address], [place], [place], [facility], . tel:[phone] Office/outpat ient Visit, [facility], [address] [place] [address] [address], [place], [place], [id number], tel:[phone] [facility] No Information [address] [facility] , [address], [place], [place], [facility], [place]. tel:[phone] Family History Family Member Type Diagnosis Age At Onset No Information Payers Payer name Insurance type Covered democrat ID Authoriza tion(s) No Information Social History [...]
--- OUTSIDE RECORDS SUMMARY | 2024-08-11 14:03 | XMS_ITS | Clinical Summary ---
Author Organization [facility] Address [address] [place] [address] Care Team Providers Care Correctional Food Service Supervisor Name Role Phone Robb Bloom PA-C Primary [...] often do you attend chur ch or hinduism services? Never 01/30/2019 Do you belong to any clubs o r organizations such as pentecostal groups, unions, fraternal or athletic groups, or [...] on file Legal Sex Female 4:12 AM VICE PRESIDENT OF CONSULTING SERVICES Gender Identity Not on file Sexual Orientation [...] (168 lb 12.8 oz) 08/08/2023 1:00 PM VICE PRESIDENT OF CONSULTING SERVICES Height 154.9 cm (5' 1 ) 10/10/2021 11:2 6 AM CDT Body Mass Index 31.89 10/10/2021 11:26 AM CDT Plan of Treatment Upcoming Encounters Date Type Department Care Team (Late st Contact Info) Description 08/19/2024 1:00 PM VICE PRESIDENT OF CONSULTING SERVICES Office Visit [facility] Oncology and Hematology - [place] [address] [facility] [address] [address] [place] [address] [place] [address] [address] [place] [address] Health Maintenance Due Date Last Done Comments DTAP/TDAP/TD VACCINES (1 - Tdap) 1961 PNEUMOCOCCAL VACCINE 65+ YEARS (1 of 2 - PCV) 08/29/18 62 ZOSTER VACCINE (1 of 2) 1992 OSTEOPOROSIS SCREENING 08/30/2007 RSV VACCINE (60+ or ) (1 - 1-dose 75+ series) 2017 INFLUENZA VACCINE (#1) 2024 05/08/2018 [place]) Prev entative Visit/Annual Wellness Visit 06/25/2024 Medical Devices Implanted Type Area Store Consultant Device Identifier Shelf Expiration Date Model / Serial / Lot Port Pwrprt Clr Sofi 8fr Mri [id number] Implanted:Qty : 1 on 02/06/2019 by Pam Garcia MD Port Left: Chest CR [employer] [id number] 01/23/2020 [id number] / / [id number] Description:8fr Bard ClearVu e PowerPort Insurance Care Teams Correctional Food Service Supervisor Relationship Specialty Start Date End Date Robb Bloom PA-C PCP - General Physician Biophysics Professor 09/27/20
--- OUTSIDE RECORDS SUMMARY | 2024-08-11 14:03 | XMS_ITS ---
Author Organization [facility] miesha [facility] Address [address] [facility] [place] [address] Care Team Providers Care General Passenger Agent Name Role Phone Robb Bloom PA-C Primary Care Provide r Active Problems Problem Noted Date Diagnosed Date Vitamin B12 deficiency (non anemic) 11/02/2020 Non-small cell cancer of right lung 09/27/2020 Other fatigue 09/27/2020 Chronic obstructive pulmonary disease 03/04/2019 Enlargement of lymph node 11/14/2018 Malignant neoplasm of upper lobe of right lung 0 07/31/2018 Cancer Staging:Clinical:Stage IA3(cT1c, cN0, cM0) - Unsigned Tobacco use Cigarette dependence Current Treatment and Therapy Plans No current plan information found. Past Treatment and Therapy Plans No past plan information found. Lifetime Dose Tracking * Chemical Lifetime Dose Automatic Entry Manual Entr y Effective Dose 38.2 mSv 0 mSv 38.2 mSv Total DLP 1,999 DLP 0 DLP 1,999 DLP CTDIvol Max 58.6 mGy 0 mGy 58.6 mGy CTDIvol Min 58.6 mGy 0 mGy 58.6 mGy
[2024-08-11 15:57] LABS: Folic Acid 7.4 ng/mL (2.76->20)
== END 2024-08-11 11:00 | disposition home or self-care (01) ==
LOC: ANHLAB 11:00
PROVIDERS: PCP Internal Medicine; Visit Provider Internal Medicine Hematology & Oncology
DX: C34.91 Malignant neoplasm of unspecified part of right bronchus or lung (principal); D64.9 Anemia, unspecified
CPT/HCPCS: 36415; 80053; 82607; 82728; 82746; 83540; 83550; 85025

== ENCOUNTER 2024-10-08 12:05 | Outpatient (CLI) | payer MEDICARE, SELFPAY ==
--- NOTE | ~2024-10-08 | XR_ITS ---
Clinical Indication: Dyspnea PA and lateral views of the chest: Comparison: 09/16/2021 Findings: Stable left-sided Mediport. Possible focal hazy opacity right lung base. Cardiomediastinal silhouette is within normal limits. Bones and soft tissues are unremarkable. Impression: Possible focal hazy opacity right lung base, nonspecific. Correlate for focal pneumonia. Follow-up ex am advised. Stable Mediport. Reviewed, dictated and finalized at location M. Impression: Possible focal hazy opacity right lung base, nonspecific. Correlate for focal p neumonia. Follow-up exam advised. Stable Mediport.
--- OUTSIDE RECORDS SUMMARY | 2024-10-08 13:19 | XMS_ITS | Clinical Summary ---
Author Organization [facility] Sissy Goss Address [address] [facility] [address] Care Team Providers Care Potato Peeler Name Role Phone Robb Bloom PA-C Primary [...] Encounters Date Type Department Care Team Description 10/07/2024 External Device Data STL ABSTRACTION Provider, Abstract 10/07/2024 External Device Data STL ABSTRACTION Provider, Abstract 09/10/2024 External Device Data STL ABSTRACTION Provider, Abstract 08/19/2024 1:00 PM DOZER OPERATOR Office Visit [facility] Oncology and Hematology - [place] [address] [address] [place] [address] Rohit Meneses MD Malignant neoplasm of right lung, unspecified part of lung (CMS/HCC) (Primary Dx) 07/16/2024 External Device Data STL ABSTRACTION Provider, [...] Never 01/30/2019 How often do you attend [facility] or mormon services? Never 01/30/2019 Do you belong to any clubs o r organizations such as episcopal groups, unions, fraternal or athletic groups, or [...] on file Legal Sex Female 4:12 AM DOZER OPERATOR Gender Identity Not on file Sexual Orientation Not on file Last Filed Vital Signs Vital Sign Reading Time Taken Comments Blood Pressure 114/67 08/19/2024 1:01 PM DOZER OPERATOR Pulse 88 08/19/2024 1:01 PM DOZER OPERATOR Temperature 36.3 C (97.4 F) 08/19/2024 1:01 PM DOZER OPERATOR Respiratory Rate 15 08/19/2024 1:01 PM DOZER OPERATOR Oxygen Saturation 90% 08/19/2024 1:01 PM DOZER OPERATOR Inhaled Oxygen Concentration - - Weight 81.1 kg (178 lb 12.8 oz) 08/19/2024 1:01 PM DOZER OPERATOR Height 154.9 cm (5' 1 ) 10/10/2021 11:2 6 AM CDT Body Mass Index 33.78 10/10/2021 11:26 AM CDT Plan of Treatment Upcoming Encounters Date Type Department Care Team (Late st Contact Info) Description 02/16/2025 1:00 PM CDT Office Visit [facility] Oncology and Hematology - [place] [address] [facility] [address] [place] [address] Rohit Meneses MD [address] [facility] [address] [place] [address] Health Maintenance Due Date Last Done Comments DTAP/TDAP/TD VACCINES (1 - Tdap) 1961 PNEUMOCOCCAL VACCINE 50+ YEARS (1 of 2 - PCV) 08/29/18 62 ZOSTER VACCINE (1 of 2) 1992 OSTEOPOROSIS SCREENING 08/30/2007 RSV VACCINE (60+ or ) (1 - 1-dose 75+ series) 2017 INFLUENZA VACCINE (#1) 2024 05/08/2018 [place] Prev entative Visit/Annual Wellness Visit 06/25/2024 Medical Devices Implanted Type Area Gynecologist Device Identifier Shelf Expiration Date Model / Serial / Lot Port Pwrprt Clr Sofi 8fr Mri [id number] Implanted:Qty : 1 on 02/06/2019 by Pam Garcia MD Port Left: Chest CR [employer] [id number] 01/23/2020 [id number] / / [id number] Description:8fr Bard ClearVu e PowerPort Insurance Care Teams Potato Peeler Relationship Specialty Start Date End Date Robb Bloom PA-C PCP - General Physician Delivery Crew Worker 09/27/20
--- OUTSIDE RECORDS SUMMARY | 2024-10-08 13:19 | XMS_ITS | Encounter Summary ---
Author Organization [facility] Address [address] [place] [address] Care Team Providers Care Forensic Medical Examiner Name Role Phone Robb Bloom PA-C Primary Care Provide r Encounter Details Date Type Department Care Team (Late st Contact Info) Description 10/07/2024 External Device Data STL ABSTRACTION Provider, Abstract NO ADDRESS ON FILE Social History Tobacco Use Types Packs/Day Years Used Date Smoking Tobacco: Every Day Cigarettes 2 58 Smokeless Tobacco: Never Comments:smoked since 20 yrs Alcohol Use Standard [...] Never 01/30/2019 How often do you attend [facility] or synagogue services? Never 01/30/2019 Do you belong to any clubs o r organizations such as hoahaoism groups, unions, fraternal or athletic groups, or [...] on file Legal Sex Female 4:12 AM PASSENGER CAR UPHOLSTERER APPRENTICE Gender Identity Not on file Sexual Orientation Not on file documented as of this encounter Plan of Treatment Upcoming Encounters Date Type Department Care Team (Late st Contact Info) Description 02/16/2025 1:00 PM CDT Office Visit [facility] Oncology and Hematology - [place] [address] [facility] [address] [place] [phone] Rohit Meneses MD [address] [facility] [address] [place] [address] documented as of this encounter Visit Diagnoses Not on filedocumented in this encounter Care Teams Forensic Medical Examiner Relationship Specialty Start Date End Date Robb Bloom PA-C PCP - General Physician Accountant Clerk 09/27/20 documented as of this encounter
--- OUTSIDE RECORDS SUMMARY | 2024-10-08 13:19 | XMS_ITS | Encounter Summary ---
Author Organization [facility] Address [address] [place] [address] Care Team Providers Care Manager Lpn Name Role Phone Robb Bloom PA-C Primary [...] Never 01/30/2019 How often do you attend [facility] or congregational services? Never 01/30/2019 Do you belong to any clubs o r organizations such as alevism groups, unions, fraternal or athletic groups, or [...] on file Legal Sex Female 4:12 AM GAME PRESERVE MANAGER Gender Identity Not on file Sexual Orientation Not on file documented as of this encounter Plan of Treatment Upcoming Encounters Date Type Department Care Team (Late st Contact Info) Description 02/16/2025 1:00 PM CDT Office Visit [facility] [place] Oncology and Hematology - [place] [address] [facility] [address] [place] [phone] Rohit Meneses MD [address] [facility] [address] [place] [address] documented as of this encounter Visit Diagnoses Not on filedocumented in this encounter Care Teams Manager Lpn Relationship Specialty Start Date End Date Robb Bloom PA-C PCP - General Physician Ammonia Operator 09/27/20 documented as of this encounter
--- OUTSIDE RECORDS SUMMARY | 2024-10-08 13:19 | XMS_ITS ---
Author Organization [facility] Address [address] [facility] [place] [address] Care Team Providers Care Mica Washer Gluer Name Role Phone Robb Bloom PA-C Primary [...]
== END 2024-10-08 12:06 | disposition home or self-care (01) ==
PROVIDERS: PCP Internal Medicine; Visit Provider Nurse Practitioner Family
DX: R06.00 Dyspnea, unspecified (principal); R05.9 Cough, unspecified
CPT/HCPCS: 71046

== ENCOUNTER 2024-11-13 12:16 | Outpatient (CLI) | payer MEDICARE, SELFPAY ==
--- OUTSIDE RECORDS SUMMARY | 2024-11-13 12:19 | XMS_ITS | Clinical Summary ---
Author Organization [facility] Sissy Goss Address [address] [place] [address] Care Team Providers Care Explosive Ordnance Disposal Manager Name Role Phone Robb Bloom PA-C Primary [...] INHALE 1 PUFF BY MOUTH TWICE DAILY 09/23/19 21 Active theophylline (THEOCHRON) 300 mg Extended Release 12 hour tablet Take 300 mg by mouth. Active pramipexole (MIRAPEX) 0.25 mg tablet Take 0.25 mg by mouth. 01/08/20 18 Active potassium chloride (KLOR-CON) 10 mEq Extended [...] 1 Puff by inhalation daily. 1 Each 07/14/19 Active promethazine-de xtromethorphan (PHENERGAN-DM) 6.25-15 mg/5 mL syrupIndication s:Medicine refill Take 5 mL by mouth every 4 hours as needed for Cough. May cause drowsinesss 120 mL 0 03/08/20 Active sertraline (ZOLOFT) 50 mg tablet Take 50 mg by mouth daily. 09/22/19 Active Daliresp 250 mcg Tablet TAKE 1 TABLET BY MOUTH DAILY FOR 4 WEEKS. START THIS PACK FIRST 09/23/19 Active Daliresp 500 mcg Tablet TAKE 1 TABLET BY MOUTH DAILY. START THIS AFTER FINISHING THE 250 MCG PACK 09/23/19 Active predniSONE (DELTASONE) 10 mg tablet 11/18/19 23 Active levothyroxine 100 mcg tablet TAKE 1 TABLET(100 MCG) BY MOUTH DAILY IN THE MORNING 90 Tablet 3 10/17/19 25 Active levothyroxine 100 mcg tablet TAKE 1 TABLET(100 MCG) BY MOUTH DAILY IN THE MORNING 90 Tablet 3 01/18/20 24 025 Discontinued Active Problems Problem Noted Date Diagnosed Date Vitamin B12 deficiency (non anemic) 11/02/2020 Non-small cell cancer of right lung 09/27/2020 Other fatigue 09/27/2020 Chronic obstructive pulmonary disease 03/04/2019 Enlargement of lymph node 11/14/2018 Malignant neoplasm of upper lobe of right lung 0 07/31/2018 Cancer Staging:Clinical:Stage IA3(cT1c, cN0, cM0) - Unsigned Tobacco use Cigarette dependence Encounters Date Type Department Care Team Description 10/16/2024 Refill [facility] Oncology and H[facility]ology [facility] [address] [address] Rohit Meneses MD 10/07/2024 External Device Data STL ABSTRACTION Provider, Abstract 10/07/2024 External Device Data STL ABSTRACTION Provider, Abstract 09/10/2024 External Device Data STL ABSTRACTION Provider, Abstract 08/19/2024 1:00 PM LANGUAGE THERAPIST Office Visit [facility] Oncology and Hematology [address] [place] [address] Rohit Meneses MD Malignant neoplasm of right lung, unspecified part of lung (CMS/HCC) (Primary Dx) from Last 3 Months Immunizations Immunization Administration [...] often do you attend chur ch or islam services? Never 01/30/2019 Do you belong to any clubs o r organizations such as religion groups, unions, fraternal or athletic groups, or [...] on file Legal Sex Female 4:12 AM LANGUAGE THERAPIST Gender Identity Not on file Sexual Orientation Not on file Last Filed Vital Signs Vital Sign Reading Time Taken Comments Blood Pressure 114/67 08/19/2024 1:01 PM LANGUAGE THERAPIST Pulse 88 08/19/2024 1:01 PM LANGUAGE THERAPIST Temperature 36.3 C (97.4 F) 08/19/2024 1:01 PM LANGUAGE THERAPIST Respiratory Rate 15 08/19/2024 1:01 PM LANGUAGE THERAPIST Oxygen Saturation 90% 08/19/2024 1:01 PM LANGUAGE THERAPIST Inhaled Oxygen Concentration - - Weight 81.1 kg (178 lb 12.8 oz) 08/19/2024 1:01 PM LANGUAGE THERAPIST Height 154.9 cm (5' 1 ) 10/10/2021 11:2 6 AM CDT Body Mass Index 33.78 10/10/2021 11:26 AM CDT Plan of Treatment Upcoming Encounters Date Type Department Care Team (Late st Contact Info) Description 02/16/2025 1:00 PM CDT Office Visit [facility] Oncology and Hematology - [place] [address] [facility] [address] [place] [address] Rohit Meneses MD [address] [facility] [address] [place] [address] Health Maintenance Due Date Last [...] Visit 06/25/2024 Medical Devices Implanted Type Area General Lithographic Worker Device Identifier Shelf Expiration Date Model / Serial / Lot Port Pwrprt Clr Sofi 8fr Mri [id number] Implanted:Qty : 1 on 02/06/2019 by Pam Garcia MD Port Left: Chest CR [employer] [id number] 01/23/2020 [id number] / / [id number] Description:8fr Bard ClearVu e PowerPort Insurance Care Teams Explosive Ordnance Disposal Manager Relationship Specialty Start Date End Date Robb Bloom PA-C PCP - General Physician Reinforcer 09/27/20
--- OUTSIDE RECORDS SUMMARY | 2024-11-13 12:19 | XMS_ITS ---
Author Organization [facility] Address [address] [place] [address] Care Team Providers Care Community Case Manager Name Role Phone Robb Bloom PA-C [...]
--- OUTSIDE RECORDS SUMMARY | 2024-11-13 12:19 | XMS_ITS | Continuity of Care Document ---
Author Organization [facility] Address [address] [place] [address] [place] [address] Phone Care Team Providers Care Real Estate Job Titles Name Role Phone Jd Rodarte Unavailable Unavailable Procedures Procedure Date Office/outpatient Visit, Est Office/outpatient Visit, New Advance Directives Directive Yes / No Effective Date File Name No Information Encounters Encounter Description Practice Location Reason(s) For Visit Diagnoses Date Provider Providers Copied on Encounter Office/outpat ient Visit, [facility] [place], [address] [place] [address] [address], [place], [place], [id number], tel:[phone] SEC [facility] No Information [address] [facility] , [address], [place], [place], [facility], . tel:[phone] Office/outpat ient Visit, [facility], [address] [place] [address] [address], [place], [place], [id number], tel:[phone] [facility] [place] No Information [address] [facility] , [address], [place], [place], [facility], [place]. tel:[phone] Family History Family Member Type Diagnosis Age [...]
[2024-11-13 12:52] LABS: Alanine Aminotransferase 21 U/L (6-35); Albumin Level 4.2 g/dL (3.5-5.1); Alkaline Phosphatase 77 U/L (38-126); Anion Gap 6 mmol/L (4-12); Aspartate Amino Transferase 24 U/L (14-36); Bilirubin,Total 0.4 mg/dL (0.2-1.3); Blood Urea Nitrogen 20 mg/dL (7-17); Calcium 9.4 mg/dL (8.4-10.2); Carbon Dioxide 31 mmol/L (22-30); Chloride 104 mmol/L (98-107); Cholesterol 193 mg/dL (0-200); Estimated Glomerular Filt Rate 56; Glucose 92 mg/dL (65-110); HDL Direct 41 mg/dL; Potassium 4.8 mmol/L (3.4-5.0); Sodium 141 mmol/L (137-145); Triglycerides 119 mg/dL (<150)
[2024-11-13 13:03] LABS: LDL Cholesterol Direct 107 mg/dL
[2024-11-13 13:05] LABS: Free T4 Free Thyroxine 1.58 ng/dL (0.78-2.19)
== END 2024-11-13 12:17 | disposition home or self-care (01) ==
PROVIDERS: PCP Internal Medicine; Visit Provider Internal Medicine
DX: E78.5 Hyperlipidemia, unspecified (principal); E03.9 Hypothyroidism, unspecified; E53.8 Deficiency of other specified B group vitamins; R53.1 Weakness; C34.90 Malignant neoplasm of unspecified part of unspecified bronchus or lung
CPT/HCPCS: 36415; 80053; 80061; 82607; 84439; 84443

== ENCOUNTER 2025-02-09 09:29 | Outpatient (CLI) | payer MEDICARE, SELFPAY ==
--- NOTE | ~2025-02-09 | CT_ITS ---
Clinical Indication: Lung cancer CT Scan of the Chest with Contrast: Technique: Contiguous sections were acquired throughout the chest after intravenous administration of 75 cc of Omnipaque 350. Dose reduction technique was used on this scan by utilizing automated exposu re control and iterative reconstruction technique. The dose-length product (DLP) was 220.22 mGy-cm. COMPARISON: 08/11/2024 Findings: There is no evidence of any significant mediastinal, hilar or axillary lymphadenopathy. There is no f illing defect in the pulmonary arterial tree to suggest pulmonary embolus. There is no evidence of ao rtic dissection or aneurysm. There is no evidence of pleural or pericardial effusion. Stable irregular right upper lobe nodule suggestive treated disease and/or post therapy change, with adjacent scarring/distortion. Moderate to advanced emphysema present in the lungs. Images through the upper abdomen reveal small gallstones and stable small probable right adrenal elayne kajal. Impression: Stable presumed treated disease and/or other posttreatment change in the right upper lobe. Moderate to advanced emphysema. Reviewed, dictated and finalized at [facility]. Impression: Stable presumed treated disease and/or other posttreatment change in the right upper lobe. Moderate to advanced emphysema.
[2025-02-09 09:55] LABS: Estimated Glomerular Filt Rate 53
--- OUTSIDE RECORDS SUMMARY | 2025-02-09 10:12 | XMS_ITS | Clinical Summary ---
Author Organization [facility] Address On license of [facility] [place] [address] Care Team Providers Care Power Plant Inspector Name Role Phone Escobar Lopez DO Primary Care Provider [phone] Allergies Active Allergy Reactions Criticality Noted Date Comments Meperidine Nausea And Vomiting Low 08/10/2017 Medications No known medications Active Problems Problem Noted Date Diagnosed Date Age-related nuclear cataract of both eyes 2024 Assessment & Plan (01/16/2025 5:43 PM CDT): Visually significant cataracts left eye (OS)>right eye (OD) Steep angle approach on gonio, but open both eyes (OU) (normal intraocular pressure (IOP)) She prefers to have cataract extraction ([place]) [place] to [place] ([place]) R/B/A cataract extraction (CE) d/w patient I recommend she see Dr. Smalls in [place], [place] I will ask his office to contact her for scheduling pre-op evaluation Blurred vision, bilateral 01/16/2025 Cigarette nicotine dependence, uncomplicated Narrow angle glaucoma suspect of both eyes 01/16 Vitamin B12 deficiency (non anemic) 11/02/2020 Non-small cell cancer of right lung 09/27/2020 Other fatigue 09/27/2020 Chronic obstructive pulmonary disease 03/04/2019 Enlargement of lymph node 11/14/2018 Malignant neoplasm of upper lobe of right lung 0 07/31/2018 Encounters Date Type Department Care Team Description 01/16/2025 1:00 PM CDT Office Visit [facility] [address] [facility] [address] [place] [address] Karmen Reynolds, OD Age-related nuclear cataract of both eyes (Primary Dx); Blurred vision, bilateral; Narrow angle glaucoma suspect of both eyes from Last 3 Months Immunizations Immunization Administration Dates Next Due Influenza, Trivalent, High D ose, Split, Preservative Free, Intramuscular 05/08/2018 Social History Tobacco Use Types Packs/Day Years Used Date Smoking Tobacco: Unknown Tobacco Cessation:Counseling Given: Not Answered Comments:+smoker Comments Unknown Sex and Gender Information Value Date Recorded Sex Assigned at Not on file Legal Sex Female 8:49 AM CDT Gender Identity Not on file Sexual Orientation Not on file Obstetrics History Plan of Treatment Health Maintenance Due Date Last Done Comments Depression Screening 1942 Fall Risk Assessment 1942 Osteoporosis Screening-Bone Density Scan 1942 DTaP/Tdap/Td Vaccine (1 - Tdap) 1953 Hepatitis B Screening 1960 Pneumococcal vaccine 65+ (1 of 2 - PCV) 1961 Zoster Vaccine (1 of 2) 1992 Well Visit 65+ 08/30/2007 Covid-19 Vaccine ( season) 2024 07/15/2021, 11/27/2020, 10/30/2020 Influenza Vaccine (#1) 2025 05/08/2018 Insurance [facility] MEDICARE ADVANTAGE Care Teams Power Plant Inspector Relationship Specialty Start Date End Date Escobar Lopez DO [address] [facility] [address] [place] [address] PCP - General Internal Medicine 10/14/24
--- OUTSIDE RECORDS SUMMARY | 2025-02-09 10:12 | XMS_ITS | Continuity of Care Document ---
Author Organization [facility] Address [address] [place] [address] [place] [address] Phone Care Team Providers Care Photo Optics Technician Name Role Phone Jd Rodarte Unavailable Unavailable Procedures Procedure Date Office/outpatient Visit, Est Office/outpatient Visit, New Advance Directives Directive Yes / No Effective Date File Name No Information Encounters Encounter Description Practice Location Reason(s) For Visit Diagnoses Date Provider Providers Copied on Encounter Office/outpat ient Visit, [facility] [place], [address] [place] [address] [address], [place], [place], [id number], tel:[phone] SEC [facility] [place] No Information [address] [facility] , [address], [place], [place], [facility], . tel:[phone] Office/outpat ient Visit, [facility], [address] [place] [address] [address], [place], [place], [id number], tel:[phone] [facility] [place] No Information [address]. [address] [facility] , [address], [place], [place], [facility], [place]. tel:[phone] Family History Family Member Type Diagnosis Age At Onset No Information Payers Payer name Insurance type Covered green party ID Authoriza tion(s) No Information Social [...]
--- OUTSIDE RECORDS SUMMARY | 2025-02-09 10:12 | XMS_ITS ---
Author Organization [facility] Address [address] [place] [address] Care Team Providers Care Plane Captain Name Role Phone Robb Bloom PA-C Primary [...]
--- OUTSIDE RECORDS SUMMARY | 2025-02-09 10:12 | XMS_ITS | Clinical Summary ---
Author Organization [facility] Sissy Goss Address [address] [place] [address] Care Team Providers Care Armhole Feller Handstitching Machine Name Role Phone Robb Bloom PA-C Primary [...] DAILY IN THE MORNING 90 Tablet 3 5 Active Active Problems Problem Noted Date Diagnosed Date Vitamin B12 deficiency (non anemic) 11/02/2020 Non-small cell cancer of right lung 09/27/2020 Other fatigue 09/27/2020 Chronic obstructive pulmonary disease 03/04/2019 Enlargement of lymph node 11/14/2018 Malignant neoplasm of upper lobe of right lung 0 07/31/2018 Cancer Staging:Clinical:Stage IA3(cT1c, cN0, cM0) - Unsigned Tobacco use Cigarette dependence Encounters Date Type Department Care Team Description 12/09/2024 External Device Data STL ABSTRACTION Provider, Abstract [...] drink = 0.6 oz pur e alcohol) Comments Unknown Sex and Gender Information Value Date Recorded Sex Assigned at Not on file Legal Sex Female 4:12 AM SLEEP MANAGER Gender Identity Not on file Sexual Orientation Not on file Last Filed Vital Signs Vital Sign Reading Time Taken Comments Blood Pressure 114/67 08/19/2024 1:01 PM SLEEP MANAGER Pulse 88 08/19/2024 1:01 PM SLEEP MANAGER Temperature 36.3 C (97.4 F) 08/19/2024 1:01 PM SLEEP MANAGER Respiratory Rate 15 08/19/2024 1:01 PM SLEEP MANAGER Oxygen Saturation 90% 08/19/2024 1:01 PM SLEEP MANAGER Inhaled Oxygen Concentration - - Weight 81.1 kg (178 lb 12.8 oz) 08/19/2024 1:01 PM SLEEP MANAGER Height 154.9 cm (5' 1) 10/10/2021 11:2 6 AM CDT Body Mass Index 33.78 10/10/2021 11:26 AM CDT Plan of Treatment Upcoming Encounters Date Type Department Care Team (Late st Contact Info) Description 02/16/2025 1:00 PM CDT Office Visit [facility] Oncology and Hematology - [place] [address] [facility] [address] [place] [address] Rohit Meneses MD [address] [facility] [address] [place] [address] Health Maintenance Due Date Last Done Comments DTAP/TDAP/TD VACCINES (1 - Tdap) 1961 PNEUMOCOCCAL VACCINE 50+ YEARS (1 of 2 - PCV) 08/29/18 62 ZOSTER VACCINE (1 of 2) 1992 OSTEOPOROSIS SCREENING 08/30/2007 RSV VACCINE (60+ or ) (1 - 1-dose 75+ series) 2017 Medicare [place] ([place]) Prev entative Visit/Annual Wellness Visit 06/25/2024 INFLUENZA VACCINE (#1) 2025 05/08/2018 Medical Devices Implanted Type Area School Manager Device Identifier Shelf Expiration Date Model / Serial / Lot Port Pwrprt Clr Sofi 8fr Mri [id number] Implanted:Qty : 1 on 02/06/2019 by Pam Garcia MD Port Left: Chest [employer] [id number] 01/23/2020 [id number] / / [id number] Description:8fr Bard ClearVu e PowerPort Insurance Care Teams Armhole Feller Handstitching Machine Relationship Specialty Start Date End Date Robb Bloom PA-C PCP - General Physician Toll Lineman 09/27/20
== END 2025-02-09 09:30 | disposition home or self-care (01) ==
PROVIDERS: PCP Internal Medicine; Visit Provider Internal Medicine Hematology & Oncology
DX: C34.91 Malignant neoplasm of unspecified part of right bronchus or lung (principal); J43.9 Emphysema, unspecified
CPT/HCPCS: 71260; Q9967

== ENCOUNTER 2025-02-09 10:09 | Outpatient (CLI) | payer MEDICARE, SELFPAY ==
[2025-02-09 10:30] LABS: Hematocrit 37.6 % (37.0-47.0); Hemoglobin 11.6 g/dL (12.0-15.0); Immature Granulocyte Percent A 0.5 % (0-0.5); Lymphocytes Absolute Auto 1.21 K/mm3 (0.9-3.2); Mean Corpuscular HGB Conc 30.9 g/dl (32-36); Mean Corpuscular Hemoglobin 25.1 pg (26-34); Mean Corpuscular Volume 81.4 fl (80-100); Nucleated Red Blood Cells Absolute Auto 0.000 K/mm3 (0.0-0.012); Nucleated Red Blood Cells Perc 0.0 % (0.0-0.2); Platelet Count Result 191 k/mm3 (150-375); Red Blood Count 4.62 M/mm3 (4.2-5.4); White Blood Count 6.1 K/mm3 (4.5-10.0)
--- OUTSIDE RECORDS SUMMARY | 2025-02-09 11:07 | XMS_ITS | Continuity of Care Document ---
Author Organization [facility] Address [address] [place] [address] [place] [address] Phone Care Team Providers Care Duralumin Metalworker Name Role Phone Jd Rodarte Unavailable Unavailable Procedures Procedure Date Office/outpatient Visit, Est Office/outpatient Visit, New Advance Directives Directive Yes / No Effective Date File Name No Information Encounters Encounter Description Practice Location Reason(s) For Visit Diagnoses Date Provider Providers Copied on Encounter Office/outpat ient Visit, [facility], [address] [place] [address] [address], [place], [place], [id number], tel:[phone] SEC [facility] No Information [address] [facility] , [address], [place], [place], [facility], . tel:[phone] Office/outpat ient Visit, [facility], [address] [place] [address] [address], [place], [place], [id number], tel:[phone] SEC [facility] [place] No Information [address]. [address] [facility] , [address], [place], [place], [facility], [place]. tel:[phone] Family History Family Member Type Diagnosis Age [...]
--- OUTSIDE RECORDS SUMMARY | 2025-02-09 11:07 | XMS_ITS ---
Author Organization [facility] Address [address] [place] [address] Care Team Providers Care Mobility Engineer Name Role Phone Robb Bloom PA-C Primary [...]
--- OUTSIDE RECORDS SUMMARY | 2025-02-09 11:07 | XMS_ITS | Clinical Summary ---
Author Organization [facility] Address [facility] [place] [address] Care Team Providers Care Hammer Runner Name Role Phone Escobar Lopez DO Primary Care Provider [phone] Allergies Active Allergy Reactions Criticality Noted Date [...] I recommend she see Dr. Smalls in [place], [place] I will ask his office to [...] Description 01/16/2025 1:00 PM CDT Office Visit [facility] [address] [facility] [address] [place] [address] Karmen Reynolds, OD Age-related nuclear cataract of [...] 10/30/2020 Influenza Vaccine (#1) 2025 05/08/2018 Insurance [facility] MEDICARE ADVANTAGE Care Teams Hammer Runner Relationship Specialty Start Date End Date Escobar Lopez DO [address] [facility] [address] [place] [address] PCP - General Internal Medicine 10/14/24
--- OUTSIDE RECORDS SUMMARY | 2025-02-09 11:07 | XMS_ITS | Clinical Summary ---
Author Organization [facility] Sissy Goss Address [address] [place] [address] Care Team Providers Care Washing And Screening Plant Supervisor Name Role Phone Robb Bloom PA-C [...] Encounters Date Type Department Care Team Description 02/09/2025 Orders Only [facility] Oncology and Hematology - [place] [address] [place] [address] Rohit Meneses MD 12/09/2024 External Device Data STL ABSTRACTION Provider, [...] on file Legal Sex Female 4:12 AM LUMBER CARRIER OPERATOR Gender Identity Not on file Sexual Orientation Not on file Last Filed Vital Signs Vital Sign Reading Time Taken Comments Blood Pressure 114/67 08/19/2024 1:01 PM LUMBER CARRIER OPERATOR Pulse 88 08/19/2024 1:01 PM LUMBER CARRIER OPERATOR Temperature 36.3 C (97.4 F) 08/19/2024 1:01 PM LUMBER CARRIER OPERATOR Respiratory Rate 15 08/19/2024 1:01 PM LUMBER CARRIER OPERATOR Oxygen Saturation 90% 08/19/2024 1:01 PM LUMBER CARRIER OPERATOR Inhaled Oxygen Concentration - - Weight 81.1 kg (178 lb 12.8 oz) 08/19/2024 1:01 PM LUMBER CARRIER OPERATOR Height 154.9 cm (5' 1) 10/10/2021 11:2 6 AM CDT Body Mass Index 33.78 10/10/2021 11:26 AM CDT Plan of Treatment Upcoming Encounters Date Type Department Care Team (Late st Contact Info) Description 02/16/2025 1:00 PM CDT Office Visit [facility] Oncology and Hematology - [place] [address] [facility] [address] [place] [address] Rohit Meneses MD [address] [facility] [address] [place] [address] Health Maintenance Due Date Last Done Comments DTAP/TDAP/TD VACCINES (1 - Tdap) 1961 PNEUMOCOCCAL VACCINE 50+ YEARS (1 of 2 - PCV) 08/29/18 62 ZOSTER VACCINE (1 of 2) 1992 OSTEOPOROSIS SCREENING 08/30/2007 RSV VACCINE (60+ or ) (1 - 1-dose 75+ series) 2017 [place] Prev entative Visit/Annual Wellness Visit 06/25/2024 INFLUENZA VACCINE (#1) 2025 05/08/2018 Medical Devices Implanted Type Area Vice Provost Device Identifier Shelf Expiration Date Model / Serial / Lot Port Pwrprt Clr Sofi 8fr Mri [id number] Implanted:Qty : 1 on 02/06/2019 by Pam Garcia MD Port Left: Chest CR [employer] [id number] 01/23/2020 [id number] / / [id number] Description:8fr Bard ClearVu e PowerPort Procedures Procedure Name Priority Date/Time Associated Diagnosis Comments CT CHEST W CONTRAST Routine 02/09/2025 10:44 AM CDT from Last 3 Months Results * CT CHEST W CONTRAST (02/09/2025 10:44 AM CDT) Anatomical Region Laterality Modality Chest Computed Tomogra phy Rohit Meneses MD CT ORDERABLES Final Result from Last 3 Months Insurance Care Teams Washing And Screening Plant Supervisor Relationship Specialty Start Date End Date Robb Bloom PA-C PCP - General Physician Bag Shaker 09/27/20
[2025-02-09 17:43] LABS: Alanine Aminotransferase 19 U/L (6-35); Albumin Level 4.0 g/dL (3.5-5.1); Alkaline Phosphatase 91 U/L (38-126); Anion Gap 7 mmol/L (4-12); Aspartate Amino Transferase 43 U/L (14-36); Bilirubin,Total 0.4 mg/dL (0.2-1.3); Blood Urea Nitrogen 21 mg/dL (7-17); Calcium 9.3 mg/dL (8.4-10.2); Carbon Dioxide 28 mmol/L (22-30); Chloride 101 mmol/L (98-107); Estimated Glomerular Filt Rate 60; Glucose 102 mg/dL (65-110); Potassium 4.7 mmol/L (3.4-5.0); Sodium 136 mmol/L (137-145); Total Protein 7.6 g/dL (6.3-8.2)
== END 2025-02-09 10:10 | disposition home or self-care (01) ==
LOC: ANHLAB 10:11
PROVIDERS: PCP Internal Medicine; Visit Provider Internal Medicine Hematology & Oncology
DX: C34.91 Malignant neoplasm of unspecified part of right bronchus or lung (principal)
CPT/HCPCS: 36415; 80053; 85025

== ENCOUNTER 2025-05-22 10:31 | Outpatient (CLI) | payer MEDICARE, SELFPAY ==
--- OUTSIDE RECORDS SUMMARY | 2025-05-22 10:34 | XMS_ITS | Clinical Summary ---
Author Organization [facility] Address Counts include [address] beds at the [place] [address] Care Team Providers Care Seismic Computer Name Role Phone Escobar Lopez DO Primary Care Provider [phone] Allergies Active Allergy Reactions Criticality Noted Date [...] I recommend she see Dr. Smalls in [place], [place] I will ask his office to contact [...] upper lobe of right lung 0 07/31/2018 Immunizations Immunization Administration Dates Next Due Influenza, [...] on file Sexual Orientation Not on file Plan of Treatment Health Maintenance Due Date Last Done Comments Depression Screening 1942 Fall Risk Assessment 1942 Osteoporosis Screening-Bone Density Scan 1942 DTaP/Tdap/Td Vaccine (1 - Tdap) 1953 Hepatitis B Screening 1960 Pneumococcal vaccine 65+ (1 of 2 - PCV) 1961 Zoster Vaccine (1 of 2) 1992 Well Visit 65+ 08/30/2007 Covid-19 Vaccine ( season) 2025 07/15/2021, 11/27/2020, 10/30/2020 Influenza Vaccine (#1) 2025 05/08/2018 Insurance [facility] [place] [address] Care Teams Seismic Computer Relationship Specialty Start Date End Date Escobar Lopez DO PCP - General Internal Medicine 10/14/24
--- OUTSIDE RECORDS SUMMARY | 2025-05-22 10:34 | XMS_ITS | Clinical Summary ---
Author Organization [facility] Sissy Goss Address [address] [place] [address] Care Team Providers Care Accounts Payables Clerk Name Role Phone Robb Bloom PA-C Primary [...] cM0) - Unsigned Tobacco use Cigarette dependence Immunizations Immunization Administration Dates Next Due Influenza [...] often do you attend chur ch or amish services? Never 01/30/2019 Do you belong to any clubs o r organizations such as catholic groups, unions, fraternal or athletic groups, or [...] on file Legal Sex Female 4:12 AM EMT P Gender Identity Not on file Sexual Orientation Not on file Last Filed Vital Signs Vital Sign Reading Time Taken Comments Blood Pressure 182/87 02/16/2025 1:06 PM CDT Pulse 83 02/16/2025 1:04 PM CDT Temperature 36.5 C (97.7 F) 02/16/2025 1:04 PM CDT Respiratory Rate 16 02/16/2025 1:04 PM CDT Oxygen Saturation 91% 02/16/2025 1:04 PM CDT Inhaled Oxygen Concentration - - Weight 77.7 kg (171 lb 3.2 oz) 02/16/2025 1:04 P M CDT Height 154.9 cm (5' 1) 10/10/2021 11:26 AM CDT Body Mass Index 32.35 10/10/2021 11:26 AM CDT Plan of Treatment Upcoming Encounters Date Type Department Care Team (Late st Contact Info) Description 08/20/2025 1:00 PM EMT P Office Visit [facility] [address] [facility] [address] [place] [address] Rohit Meneses MD [address] [facility] [address] [place] [address] Health Maintenance Due Date Last Done Comments DTAP/TDAP/TD VACCINES (1 - Tdap) 1961 PNEUMOCOCCAL VACCINE 50+ YEARS (1 of 2 - PCV) 08/29/18 62 ZOSTER VACCINE (1 of 2) 1992 OSTEOPOROSIS SCREENING 08/30/2007 RSV VACCINE (60+ or ) (1 - 1-dose 75+ series) 2017 Medicare Advantage [place]) Prev entative Visit/Annual Wellness Visit 06/25/2024 INFLUENZA VACCINE (#1) 2025 05/08/2018 Medical Devices Implanted Type Area Optical Instrument Inspector Device Identifier Shelf Expiration Date Model / Serial / Lot Port Pwrprt Clr Sofi 8fr Mri [id number] Implanted:Qty : 1 on 02/06/2019 by Pam Garcia MD Port Left: Chest CR [employer] [id number] 01/23/2020 [id number] / / [id number] Description:8fr [employer] Insurance Care Teams Accounts Payables Clerk Relationship Specialty Start Date End Date Robb Bloom PA-C PCP - General Physician Inspector Of Dredging 09/27/20
--- OUTSIDE RECORDS SUMMARY | 2025-05-22 10:34 | XMS_ITS ---
Author Organization [facility] Address [address] [facility] [place] [address] Care Team Providers Care Shutdown Coordinator Name Role Phone Robb Bloom PA-C Primary [...]
[2025-05-22 10:52] LABS: Hematocrit 41.3 % (37.0-47.0); Hemoglobin 12.3 g/dL (12.0-15.0); Immature Granulocyte Percent A 0.3 % (0-0.5); Lymphocytes Absolute Auto 1.26 K/mm3 (0.9-3.2); Mean Corpuscular HGB Conc 29.8 g/dl (32-36); Mean Corpuscular Hemoglobin 24.7 pg (26-34); Mean Corpuscular Volume 82.9 fl (80-100); Nucleated Red Blood Cells Absolute Auto 0.000 K/mm3 (0.0-0.012); Nucleated Red Blood Cells Perc 0.0 % (0.0-0.2); Platelet Count Result 200 k/mm3 (150-375); Red Blood Count 4.98 M/mm3 (4.2-5.4); White Blood Count 6.2 K/mm3 (4.5-10.0)
[2025-05-22 11:24] LABS: Hypochromasia Occasional; Ovalocytes Occasional; Schistocytes None Seen
[2025-05-22 11:46] LABS: Alanine Aminotransferase 21 U/L (6-35); Albumin Level 4.4 g/dL (3.5-5.1); Alkaline Phosphatase 97 U/L (38-126); Anion Gap 6 mmol/L (4-12); Aspartate Amino Transferase 28 U/L (14-36); Bilirubin,Total 0.6 mg/dL (0.2-1.3); Blood Urea Nitrogen 17 mg/dL (7-17); Calcium 9.5 mg/dL (8.4-10.2); Carbon Dioxide 31 mmol/L (22-30); Chloride 101 mmol/L (98-107); Cholesterol 198 mg/dL (0-200); Estimated Glomerular Filt Rate 56; Glucose 97 mg/dL (65-110); HDL Direct 49 mg/dL; Potassium 4.1 mmol/L (3.4-5.0); Sodium 138 mmol/L (137-145); Total Protein 8.2 g/dL (6.3-8.2); Triglycerides 67 mg/dL (<150)
[2025-05-22 11:56] LABS: Free T4 Free Thyroxine 1.47 ng/dL (0.78-2.19)
[2025-05-22 12:29] LABS: Thyroid Stimulating Hormone 4.620 uIU/mL (0.465-4.680)
[2025-05-22 12:48] LABS: Vitamin B12 724.0 pg/mL (239-931)
== END 2025-05-22 10:32 | disposition home or self-care (01) ==
PROVIDERS: PCP Internal Medicine; Visit Provider Internal Medicine
DX: E03.9 Hypothyroidism, unspecified (principal); D64.9 Anemia, unspecified; E78.5 Hyperlipidemia, unspecified; R53.1 Weakness; E53.8 Deficiency of other specified B group vitamins
CPT/HCPCS: 36415; 80053; 80061; 82607; 84439; 84443; 85025